=== PATIENT | male | born 1970 | race Asian ===

== ENCOUNTER 2017-08-18 16:06 | Emergency (ER) | payer OTHER ==
[2017-08-18 17:32] LABS: BASOPHIL % 0.3 % (0-2); PLATELET COUNT 362 x10^3mcL (130-400); RED CELL DISTRIBUTION WIDTH 12.8 % (11.5-14.5)
[2017-08-18 17:36] LABS: CALCIUM 9.2 mg/dL (8.5-10.1); CARBON DIOXIDE 28.6 mmol/L (21-32); CREATININE SERUM 1.5 mg/dL (0.7-1.3); POTASSIUM SERUM 3.9 mmol/L (3.5-5.1)
[2017-08-18 17:50] LABS: BILIRUBIN TOTAL 0.8 mg/dL (0.20-1.00)
[2017-08-18 17:52] LABS: TOTAL PROTEIN, SERUM 8.8 g/dL (6.4-8.2)
[2017-08-18 18:53] VITALS: BP 155/115
== END 2017-08-18 18:53 | disposition home or self-care (01) ==
LOC: ED 16:06
PROVIDERS: Emergency Medicine
DX: F41.0 Panic disorder [episodic paroxysmal anxiety] (principal); N28.9 Disorder of kidney and ureter, unspecified; I10 Essential (primary) hypertension
CPT/HCPCS: 36415